=== PATIENT | female | born 1980 | race Caucasian/White ===

== ENCOUNTER 2020-11-26 10:29 | Outpatient (REF) | payer OTHER, SELFPAY ==
[2020-11-28 17:07] LABS: HPV mRNA E6/E7 rflx Not Detected (Not Detected)
== END 2020-11-26 10:30 | disposition home or self-care (01) ==
LOC: HO.LAB 10:29
PROVIDERS: Visit Provider Advanced Practice Midwife
DX: Z01.419 Encounter for gynecological examination (general) (routine) without abnormal findings (principal); Z11.51 Encounter for screening for human papillomavirus (HPV); N63.11 Unspecified lump in the right breast, upper outer quadrant
CPT/HCPCS: 36415; 87624; 88142

== ENCOUNTER 2021-01-02 11:41 | Outpatient (REF) | payer OTHER, SELFPAY ==
[2021-01-02 19:21] LABS: CT PCR NOT DETECTED (Not Detect.); NG PCR NOT DETECTED (Not Detect.)
== END 2021-01-02 11:42 | disposition home or self-care (01) ==
LOC: HO.LAB 11:41
PROVIDERS: Visit Provider Advanced Practice Midwife
DX: Z11.3 Encounter for screening for infections with a predominantly sexual mode of transmission (principal)
CPT/HCPCS: 87491; 87591

== ENCOUNTER 2021-01-02 14:43 | Outpatient (REF) | payer OTHER, SELFPAY ==
--- NOTE | ~2021-01-02 | MM_ITS ---
EXAMINATION: MM DIAGNOSTIC DIGITAL BREAST TOMOSYNTHESIS, BILATERAL BILATERAL TARGETED BREAST ULTRASOUND CLINICAL INFORMATION: Right breast palpable abnormality. COMPARISON: Mammography: None. TECHNIQUE: Digital breast tomosynthesis is performed in both the craniocaudal and mediolateral oblique views along with computer-aided detection (CAD). Synthesized 2D images are generated from the tomosynthesis. Bilateral targeted breast ultrasound. FINDINGS: The breasts are extremely dense, which lowers the sensitivity of mammography (ACR BI-RADS breast composition Category d). No abnormal right breast findings identified. No suspicious dominant mass or grouping of microcalcifications. Within the retroareolar region of the left breast there is a circumscribed density seen only on mediolateral oblique image measuring approximately 1.0 x 0.7 cm in size. Targeted ultrasound evaluation of the right breast did not demonstrate any abnormal cystic or solid masses. No region of abnormal distal sound shadowing appreciated. Targeted ultrasound evaluation of the retroareolar region of the left breast did not demonstrate any abnormal cystic or solid mass. No region of abnormal distal sound shadowing. There is a large amount of dense breast parenchyma with prominent ducts present. Results are discussed with the patient at time of visit. MM/MM tomosynthesis diagnostic BI IMPRESSION: No specific mammographic or ultrasound findings to suggest malignancy. ASSESSMENT: BI-RADS 1: Negative RECOMMENDATION: Routine annual mammography screening due in 12 months. Clinical followup for palpable abnormality not imaged. This patient's information was entered into a reminder system with a target due date for their next mammogram.
--- NOTE | ~2021-01-02 | US_ITS ---
EXAMINATION: US DIAGNOSTIC ULTRASOUND BREAST, LEFT CLINICAL INFORMATION: Retroareolar density. COMPARISON: Mammography of same day. TECHNIQUE: Ultrasound of the breast is performed with real-time judd scale imaging and color Doppler. FINDINGS: Targeted ultrasound evaluation of the right breast did not demonstrate any abnormal cystic or solid masses. No region of abnormal distal sound shadowing appreciated. Targeted ultrasound evaluation of the retroareolar region of the left breast did not demonstrate any abnormal cystic or solid mass. No region of abnormal distal sound shadowing. There is a large amount of dense breast parenchyma with prominent ducts present. Results are discussed with the patient at time of visit. US/US breast LT limited IMPRESSION: No specific mammographic or ultrasound findings to suggest malignancy. ASSESSMENT: BI-RADS 1: Negative RECOMMENDATION: Routine annual mammography screening due in 12 months. Clinical follow-up for palpable abnormality not imaged.
--- NOTE | ~2021-01-02 | US_ITS ---
EXAMINATION: US DIAGNOSTIC ULTRASOUND BREAST, RIGHT CLINICAL INFORMATION: Palpable abnormality. COMPARISON: None. TECHNIQUE: Ultrasound of the breast is performed with real-time judd scale imaging and color Doppler. FINDINGS: Targeted ultrasound evaluation of the right breast did not demonstrate any abnormal cystic or solid masses. No region of abnormal distal sound shadowing appreciated. Targeted ultrasound evaluation of the retroareolar region of the left breast did not demonstrate any abnormal cystic or solid mass. No region of abnormal distal sound shadowing. There is a large amount of dense breast parenchyma with prominent ducts present. Results are discussed with the patient at time of visit. US/US breast RT limited IMPRESSION: No specific mammographic or ultrasound findings to suggest malignancy. ASSESSMENT: BI-RADS 1: Negative RECOMMENDATION: Routine annual mammography screening due in 12 months. Clinical follow-up for palpable abnormality not imaged.
== END 2021-01-02 14:44 | disposition home or self-care (01) ==
LOC: HO.MAMMO 14:43
PROVIDERS: Visit Provider Advanced Practice Midwife
DX: N63.11 Unspecified lump in the right breast, upper outer quadrant (principal); Z30.433 Encounter for removal and reinsertion of intrauterine contraceptive device; Z32.02 Encounter for pregnancy test, result negative
CPT/HCPCS: 58300; 58301; 76642; 77062; 77066; 81025

== ENCOUNTER → 2021-01-08 10:59 | Outpatient (BNVA) | payer OTHER, SELFPAY | PROVIDERS: Visit Provider Advanced Practice Midwife | DX: Z71.2 Person consulting for explanation of examination or test findings (principal); N63.11 Unspecified lump in the right breast, upper outer quadrant | CPT/HCPCS: 99202 ==

== ENCOUNTER → 2021-02-04 11:03 | Outpatient (BNVA) | payer OTHER, SELFPAY | PROVIDERS: Visit Provider Advanced Practice Midwife | DX: Z30.431 Encounter for routine checking of intrauterine contraceptive device (principal) | CPT/HCPCS: 99212 ==

== ENCOUNTER → 2022-08-25 13:55 | Outpatient (BNVA) | payer OTHER, SELFPAY | PROVIDERS: Visit Provider Advanced Practice Midwife | DX: N64.4 Mastodynia (principal) | CPT/HCPCS: 99212 ==

== ENCOUNTER 2022-09-04 14:18 | Outpatient (REF) | payer OTHER, SELFPAY ==
--- NOTE | ~2022-09-04 | MM_ITS ---
EXAMINATION: MM DIAGNOSTIC DIGITAL BREAST TOMOSYNTHESIS, BILATERAL US TARGETED BREAST, RIGHT CLINICAL INFORMATION: Right breast pain lateral aspect. COMPARISON: Mammography: 01/02/2021 TECHNIQUE: Digital breast tomosynthesis is performed in both the craniocaudal and mediolateral oblique views along with computer-aided detection (CAD). Synthesized 2D images are generated from the tomosynthesis. Additional right breast spot compression view in mediolateral oblique projection performed. Targeted right breast ultrasound. FINDINGS: The breasts are extremely dense, which lowers the sensitivity of mammography (ACR BI-RADS breast composition Category d). There are no significant masses, abnormal calcifications, or other abnormalities. There is a question of architectural distortion retroareolar region of the right breast for which spot compression view demonstrated to represent superimposition of fibroglandular tissue. Targeted right breast ultrasound to rule out region of mastodynia demonstrated dense breast parenchyma without abnormal cystic or solid mass or region of abnormal distal sound shadowing. Results are discussed with the patient at time of visit. MM/MM tomosynthesis diagnostic BI IMPRESSION: No mammographic or ultrasound evidence of malignancy. ASSESSMENT: BI-RADS 1: Negative RECOMMENDATION: Routine annual mammography screening. Clinical followup for pain. This patient's information was entered into a reminder system with a target due date for their next mammogram.
== END 2022-09-04 14:19 | disposition home or self-care (01) ==
LOC: HO.MAMMO 14:18
PROVIDERS: PCP Advanced Practice Midwife; Visit Provider Advanced Practice Midwife
DX: N64.4 Mastodynia (principal); R92.2 Inconclusive mammogram
CPT/HCPCS: 76642; 77062; 77066

== ENCOUNTER 2023-06-24 15:09 | Outpatient (AMB) | payer OTHER, SELFPAY ==
--- NOTE | 2023-06-24 15:22 | MHC.OFFVIS ---
Intake Vital Signs 06/24/23 15:27 Height 5 ft 2 in Weight 134 lb 7.712 oz BMI 24.6 BP 110/74 Intake Visit Reasons: IUD Removal consult Intake Note: The patient agreed to use of a medical doctor nuclear medicine during this encounter. Scribed for VAHID Diane by Shalonda Kunz medical doctor nuclear medicine, on 06/24/2023 at 3:30 pm EST. Break And Load Operator Required: No Information Interpreted: non-clinical & clinical Geophysical Manager: Geophysical Manager Present ([place] [id number]) Accompanied by: Self / Same As Patient Allergies No Known Allergies Allergy (Verified 06/24/23 15:27) Is last menstrual period known: Yes Last menstrual period: 06/17/23 HPI HPI Comments History of Present Illness Details She is here for Kyleena removal due to interest in future . She is not taking PNV. See procedure note. 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 She is counseled and consented for procedure. She is aware of risks for bleeding, pain, infection, and injury to bowel or bladder. Procedure The patient was placed in the dorsal lithotomy position. A speculum was inserted vaginally, and the cervix and strings were visualized at the os. A ring forcep was utilized, and the patient was asked to give a deep cough while the strings were grasped and gently tugged at the same time, removing the IUD device intact. Minimal bleeding was observed. All of the equipment was removed. The patient tolerated the procedure well and left the office in good condition. IUD successfully removed today. See procedure note. Plan Counseled risk of high risk at due to age. Encouraged to start PNV. Informed insurance may not cover another IUD due to time span of IUD. Monitor periods. If missed menses take at home test. Contact office and would schedule a visit, US and plan of care. Warnings reviewed with patient. Instructions given to call if temp >100.4, flu like sx, SOB, fatigue, lightheadedness/dizziness, abd pain, bloating or abd distention, bowel changes including rectal bleeding, bladder changes, foul odor or heavy vaginal bleeding. Call office with any questions or concerns. Schedule AG. [id number] Removal Procedure code (CPT) selection complete Assessment & Plan Assessment & Plan (1) Encounter for IUD removal: Code(s): Z30.432 - Encounter for removal of intrauterine contraceptive device Plan: See procedure note. Orders: Orders MM tomosynthesis screening BI Today Z12.31 - Encounter for screening mammogram for malignant neoplasm of breast Medications: New PNV,calcium [id number] acid 27 mg iron- 1 mg ( Vitamins Plus Low Iron) 1 tab PO DAILY 90 tabs 4RF Coding Level of Care Code Procedure Only Diagnoses Encounter for IUD removal Z30.432 CPT Codes Details - CPT: 46858-FES Removal ([id number])
[2023-06-24 15:27] VITALS: BP 110/74; BMI 24.6
== END 2023-06-24 15:43 | disposition home or self-care (01) ==
PROVIDERS: PCP Advanced Practice Midwife; Visit Provider Advanced Practice Midwife
DX: Z30.432 Encounter for removal of intrauterine contraceptive device (principal)
CPT/HCPCS: 58301

== ENCOUNTER → 2023-06-24 15:09 | Outpatient (BNVA) | payer OTHER, SELFPAY | PROVIDERS: PCP Advanced Practice Midwife; Visit Provider Advanced Practice Midwife | DX: Z30.432 Encounter for removal of intrauterine contraceptive device (principal) | CPT/HCPCS: 58301 ==